=== PATIENT | female | born 1950 | race Caucasian/White ===

== ENCOUNTER → 2018-07-09 10:24 | Outpatient (CLI) | payer MEDICARE, BC, SELFPAY ==
--- NOTE | 2018-07-09 | DI.MG.S_ITS ---
BILATERAL DIGITAL SCREENING MAMMOGRAM 3D/2D WITH CAD: 07/09/2018 CLINICAL: Routine screening. Comparison is made to exams dated: 06/12/2017 mammogram, 06/01/2016 mammogram, and 04/26/2015 mammogram - [facility]. There are scattered fibroglandular elements in both breasts. Current study was also evaluated with a Computer Aided Detection (CAD) system. There is an asymmetry in the right breast middle depth central to the nipple seen on the mediolateral oblique view only. No other significant masses, calcifications, or other findings are seen in either breast. IMPRESSION: INCOMPLETE: NEEDS ADDITIONAL IMAGING EVALUATION The asymmetry in the right breast is indeterminate. Additional views with possible ultrasound are recommended. NOTE: For mammograms, a report in lay terms will be sent to the patient. Approximately 15% of breast malignancies will not be visualized mammographically. In the management of a palpable breast mass, a negative mammogram must not discourage biopsy of a clinically suspicious lesion. Electronically Signed By: Cristel sanchez/taylor:07/10/2018 14:50:04 letter sent: Additional Imaging Needed ACR BI-RADS Category 0: Incomplete 3340F
== END ==
PROVIDERS: Visit Provider Family Medicine
DX: Z12.31 Encounter for screening mammogram for malignant neoplasm of breast (principal)
CPT/HCPCS: 77063; 77067

== ENCOUNTER → 2018-07-30 12:35 | Outpatient (CLI) | payer MEDICARE, BC, SELFPAY ==
--- NOTE | 2018-07-30 | DI.US.S_ITS ---
LIMITED ULTRASOUND OF RIGHT BREAST: 07/30/2018 CLINICAL: Follow up from addtional views. Comparison is made to exams dated: 07/30/2018 mammogram, 07/09/2018 mammogram - [facility], and 06/12/2017 mammogram - [facility]. Real-time and Doppler ultrasound of the right breast 2-4 o'clock, 8-10 o'clock, and retroareolar regions were performed. Macedo scale images of the real-time examination were reviewed. No underlying breast mass or abnormality is identified. There is no ultrasound correlate for the previously noted asymmetry in the right breast middle depth central to the nipple seen on the mediolateral oblique view only on comparison screening mammograms, which also resolved on additional diagnostic views performed earlier today. IMPRESSION: NEGATIVE There is no sonographic evidence of malignancy in the imaged portions of the right breast. Return to annual screening mammography is recommended. The patient is advised to monitor her breasts and to return sooner for re-evaluation should she feel anything grow or change. This exam was interpreted at Station ID: [id number]. Electronically Signed By: Raul Kasper M.D. ecl/:07/30/2018 14:24:27 letter sent: Normal Exam Ultrasound BI-RADS: 1 Negative
--- NOTE | 2018-07-30 | DI.MG.S_ITS ---
UNILATERAL RIGHT DIGITAL DIAGNOSTIC MAMMOGRAM 3D/2D WITH ADDITIONAL VIEWS: 07/30/2018 CLINICAL: Additional evaluation requested from prior study. Family history of breast cancer. Comparison is made to exams dated: 07/09/2018 mammogram - [facility], 06/12/2017 mammogram, 06/01/2016 mammogram, and 04/26/2015 mammogram - [facility]. There are scattered fibroglandular elements in right breast. Previously noted asymmetry in the right breast middle depth central to the nipple seen on the mediolateral oblique view only on comparison screening mammogram resolves with additional views and likely represented superimposition of benign anatomic tissues. No significant masses, calcifications, or other findings are seen in the breast. IMPRESSION: INCOMPLETE: NEEDS ADDITIONAL IMAGING EVALUATION Previously noted asymmetry in the right breast middle depth central to the nipple seen on the mediolateral oblique view only on comparison screening mammogram resolves with additional views and likely represented superimposition of benign anatomic tissues. A targeted ultrasound is recommended and will be performed immediately following this exam. This exam was interpreted at Station ID: [id number]. NOTE: For mammograms, a report in lay terms will be sent to the patient. Approximately 15% of breast malignancies will not be visualized mammographically. In the management of a palpable breast mass, a negative mammogram must not discourage biopsy of a clinically suspicious lesion. Electronically Signed By: Raul Kasper M.D. ecl/:07/30/2018 14:20:51 letter sent: Additional Imaging Needed ACR BI-RADS Category 0: Incomplete 3340F
== END ==
PROVIDERS: PCP Family Medicine; Visit Provider Family Medicine
DX: R92.8 Other abnormal and inconclusive findings on diagnostic imaging of breast (principal); Z80.3 Family history of malignant neoplasm of breast
CPT/HCPCS: 76642; 77065; G0279

== ENCOUNTER → 2019-07-11 12:16 | Outpatient (CLI) | payer MEDICARE, BC, SELFPAY ==
--- NOTE | 2019-07-11 | DI.MG.S_ITS ---
BILATERAL DIGITAL SCREENING MAMMOGRAM 3D/2D WITH CAD: 07/11/2019 CLINICAL: Routine screening. Family history of breast cancer. Comparison is made to exams dated: 07/09/2018 mammogram - [facility], 06/12/2017 mammogram, and 06/01/2016 mammogram - [facility]. There are scattered fibroglandular elements in both breasts. Current study was also evaluated with a Computer Aided Detection (CAD) system. No significant masses, calcifications, or other findings are seen in either breast. There has been no significant interval change. IMPRESSION: NEGATIVE There is no mammographic evidence of malignancy. A 1 year screening mammogram is recommended. This exam was interpreted at Station ID: [id number]. NOTE: For mammograms, a report in lay terms will be sent to the patient. Approximately 15% of breast malignancies will not be visualized mammographically. In the management of a palpable breast mass, a negative mammogram must not discourage biopsy of a clinically suspicious lesion. Electronically Signed By: Gamal palafox/taylor:07/11/2019 13:45:32 letter sent: Normal Exam ACR BI-RADS Category 1: Negative 3341F
== END ==
PROVIDERS: PCP Family Medicine; Visit Provider Family Medicine
DX: Z12.31 Encounter for screening mammogram for malignant neoplasm of breast (principal); Z80.3 Family history of malignant neoplasm of breast
CPT/HCPCS: 77063; 77067

== ENCOUNTER → 2020-07-12 10:51 | Outpatient (CLI) | payer MEDICARE, BC, SELFPAY ==
--- NOTE | 2020-07-12 | DI.MG.S_ITS ---
BILATERAL DIGITAL SCREENING MAMMOGRAM 3D/2D WITH CAD: 07/12/2020 CLINICAL: Routine screening. Family history of breast cancer. Comparison is made to exams dated: 07/11/2019 mammogram, 07/30/2018 mammogram, 07/09/2018 mammogram - [facility], and 06/12/2017 mammogram - [facility]. There are scattered fibroglandular elements in both breasts. Current study was also evaluated with a Computer Aided Detection (CAD) system. There are mole markers on the left breast. No significant masses, calcifications, or other findings are seen in either breast. There has been no significant interval change. IMPRESSION: NEGATIVE There is no mammographic evidence of malignancy. A 1 year screening mammogram is recommended. This exam was interpreted at Station ID: [id number]. NOTE: For mammograms, a report in lay terms will be sent to the patient. Approximately 15% of breast malignancies will not be visualized mammographically. In the management of a palpable breast mass, a negative mammogram must not discourage biopsy of a clinically suspicious lesion. Electronically Signed By: Andrea Dumont acr/penrad:07/12/2020 12:08:10 letter sent: Normal Exam ACR BI-RADS Category 1: Negative 3341F
== END ==
PROVIDERS: PCP Family Medicine; Referring Provider Family Medicine; Visit Provider Family Medicine
DX: Z12.31 Encounter for screening mammogram for malignant neoplasm of breast (principal)
CPT/HCPCS: 77063; 77067

== ENCOUNTER → 2021-07-20 12:12 | Outpatient (CLI) | payer MEDICARE, BC, SELFPAY ==
--- NOTE | 2021-07-20 12:15 | DI.MG.S_ITS ---
BILATERAL DIGITAL SCREENING MAMMOGRAM 3D/2D WITH CAD: 07/20/2021 CLINICAL: Routine screening. Family history of breast cancer. Comparison is made to exams dated: 07/12/2020 mammogram, 07/11/2019 mammogram, 07/30/2018 mammogram, and 07/09/2018 mammogram - [facility]. There are scattered fibroglandular elements in both breasts. Current study was also evaluated with a Computer Aided Detection (CAD) system. There are mole markers on the left breast. No significant masses, calcifications, or other findings are seen in either breast. There has been no significant interval change. IMPRESSION: NEGATIVE There is no mammographic evidence of malignancy. A 1 year screening mammogram is recommended. This exam was interpreted at Station ID: [id number]. NOTE: For mammograms, a report in lay terms will be sent to the patient. Approximately 15% of breast malignancies will not be visualized mammographically. In the management of a palpable breast mass, a negative mammogram must not discourage biopsy of a clinically suspicious lesion. Electronically Signed By: Pre Tate M.D., jr/taylor:07/20/2021 13:08:47 letter sent: Normal Exam ACR BI-RADS Category 1: Negative 3341F
== END ==
PROVIDERS: PCP Family Medicine; Referring Provider Family Medicine; Visit Provider Family Medicine
DX: Z12.31 Encounter for screening mammogram for malignant neoplasm of breast (principal); Z80.3 Family history of malignant neoplasm of breast
CPT/HCPCS: 77063; 77067

== ENCOUNTER → 2022-08-23 09:55 | Outpatient (CLI) | payer MEDICARE, BC, SELFPAY ==
--- NOTE | 2022-08-23 | DI.MG.S_ITS ---
BILATERAL DIGITAL SCREENING MAMMOGRAM 3D/2D WITH CAD: 08/23/2022 CLINICAL: Routine screening. Comparison is made to exams dated: 07/20/2021 mammogram, 07/12/2020 mammogram, and 07/11/2019 mammogram - [facility]. There are scattered areas of fibroglandular density in both breasts (category b / 25%-50% glandular tissue). Current study was also evaluated with a Computer Aided Detection (CAD) system. There are mole markers on the left breast. No significant masses, calcifications, or other findings are seen in either breast. There has been no significant interval change. IMPRESSION: NEGATIVE There is no mammographic evidence of malignancy. A 1 year screening mammogram is recommended. Based on the Tyrer Cuzick model (a risk assessment model) the patient's lifetime risk is 4.3% and her 10 year risk is 3.5%. According to the ACR, ACS, and NCCN guidelines, an annual breast MRI exam along with mammogram is recommended if the patient's lifetime risk is 20% or greater. This exam was interpreted at Station ID: [id number]. NOTE: For mammograms, a report in lay terms will be sent to the patient. Approximately 15% of breast malignancies will not be visualized mammographically. In the management of a palpable breast mass, a negative mammogram must not discourage biopsy of a clinically suspicious lesion. Electronically Signed By: Per Tate M.D., jr/taylor:08/23/2022 13:06:35 letter sent: Normal Exam ACR BI-RADS Category 1: Negative 3341F
== END ==
PROVIDERS: PCP Physician Assistant; Referring Provider Physician Assistant; Visit Provider Physician Assistant
DX: Z12.31 Encounter for screening mammogram for malignant neoplasm of breast (principal)
CPT/HCPCS: 77063; 77067

== ENCOUNTER → 2024-01-10 08:22 | Outpatient (CLI) | payer MEDICARE, BC, SELFPAY ==
--- NOTE | 2024-01-10 08:23 | DI.MG.S_ITS ---
BILATERAL DIGITAL SCREENING MAMMOGRAM 3D/2D WITH CAD: 01/10/2024 CLINICAL: Routine screening. Family history of breast cancer. Comparison is made to exams dated: 08/23/2022 mammogram, 07/20/2021 mammogram, and 07/12/2020 mammogram - [facility]. Both breasts are almost entirely fatty (category a/<25% glandular tissue). Current study was also evaluated with a Computer Aided Detection (CAD) system. There is a benign focal asymmetry in the left breast. There are mole markers on the left breast. No significant masses, calcifications, or other findings are seen in either breast. There has been no significant interval change. IMPRESSION: BENIGN There is no mammographic evidence of malignancy. A 1 year screening mammogram is recommended. Based on the Tyrer Cuzick model (a risk assessment model) the patient's lifetime risk is 2.6% and her 10 year risk is 2.4%. According to the ACR, ACS, and NCCN guidelines, an annual breast MRI exam along with mammogram is recommended if the patient's lifetime risk is 20% or greater. This exam was interpreted at Station ID: [id number]. NOTE: For mammograms, a report in lay terms will be sent to the patient. Approximately 15% of breast malignancies will not be visualized mammographically. In the management of a palpable breast mass, a negative mammogram must not discourage biopsy of a clinically suspicious lesion. Electronically Signed By: Lashonda barrett/taylor:01/10/2024 18:42:00 letter sent: Normal Exam ACR BI-RADS Category 2: Benign Finding(s) 3342F
== END ==
PROVIDERS: PCP Physician Assistant; Referring Provider Physician Assistant; Visit Provider Physician Assistant
DX: Z12.31 Encounter for screening mammogram for malignant neoplasm of breast (principal); Z80.3 Family history of malignant neoplasm of breast; R92.313 Mammographic fatty tissue density, bilateral breasts
CPT/HCPCS: 77063; 77067

== ENCOUNTER 2024-12-12 11:50 | Outpatient (CLI) | payer MEDICARE, BC, SELFPAY ==
[2024-12-12] VITALS (9 sets, daily range): BP systolic 158–191; BP diastolic 74–84; PULSE 60–69; RESP 16; TEMP 36.8; O2SAT 93–100
--- NOTE | 2024-12-12 | PATH_ITS ---
[facility] Accession Number: [id number] No. of containers..01 Tissue No. of containers..07 Slide . 01 Material submitted: . bone marrow - [facility] BONE NEEDLE CORE BIOPSY . 01 Diagnosis: BONE MARROW BIOPSY, ASPIRATE SMEAR, AND TOUCH PREP, ILIAC CREST: - Limited sample with normocellular bone marrow for age (30%), with normal maturing trilineage hematopoiesis, negative for increased blasts. - Mild focal reticulin fibrosis (MF 0-1 of 3). - Chromosome analysis and MPN/CML FISH panel pending. - See comment and microscopic description. - COMMENT: Concurrent flow cytometry analysis (specimen ID: [id number]) is negative for increased or aberrant blasts, negative for monotypic B-cell and plasma cell populations, and negative for aberrant T-cells. - Chromosome analysis and FISH panel results will be reported in an addendum. Follow up and clinical correlation is recommended. [facility] 12/19/2024 1156 Local . 01 Electronically signed: . Elizabeth Pereira MD, Pathologist NPI- [id number] . 01 Gross description: . Received in formalin with two identifiers and iliac crest, is a single clark to brown needle core of osseous tissue 0.9 cm in length by 0.2 cm in diameter. Submitted in cassette A1 following decalcification in Immunocal. ([id number]) /PEGGY 12/16/2024 1015 Local . 01 Microscopic: . 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 Recent labs: Erythropoietin of 6.8 (N), 12/10/2024. - MOST RECENT AVAILABLE CBC (12/12/2024): WBC: 5.8 K/uL HCT: 45.1% PLT: 338 K/uL. - ASPIRATE SMEAR / TOUCH PREP EVALUATION AND MANUAL DIFFERENTIAL (%): Aspirate smears and touch prep slides are hypospicular, hypocellular and markedly hemodilute, precluding a lead generation representative differential count. - Erythropoiesis: Limited precursors with predominantly normal morphology. Granulopoiesis: Normal maturation and morphology. Megakaryopoiesis: Rare megs with predominantly normal morphology. Blasts: No discretely increased population present. Plasma cells: No appreciable plasma cell population present. Iron stain: Lack of significant red cell precursors and marrow particles precludes evaluation of storage iron and ring sideroblasts. - CORE BIOPSY: Small core fragment with limited marrow space for evaluation, with cellularity of 30%. To better characterize this process, immunohistochemical stains were indicated and performed with adequate controls (see below). Erythroid precursors: Normal maturation and distribution, supported by CD71 and E-cadherin immunostains. Myeloid cells: Normal number and distribution, supported by CD15 immunostain. Normal M:E ratio of 3:1. CD117 highlights scattered mast cells, 2-3% of cellularity. Megakaryocytes: Normal number without tight clusters, with rare small forms, supported by FactorVIII immunostain. Blasts: <5% blasts, supported by CD34 immunostain. Lymphocytes: Single small non-paratrabecular lymphoid aggregate consisting of small predominantly T-cells and few mixed B-cells. CD3 highlights 5-10% scattered T-cells, and PAX-5 highlights 2-3% scattered B-cells. Plasma cells: CD138 highlights 2% scattered interstitial plasma cells which are polyclonal by kappa flow cytometry. Reticulin stain: Mild focal reticulin fibrosis (MF 0-1 of 3). Note: Evaluation based on a small sample size. - ASPIRATE CLOT: Not submitted. - As part of ongoing clinical quality rn, select slides were reviewed by Dr. Eulalio Peralta who agrees with the interpretation. Technical Note: The immunohistochemical stains reported were performed at [facility] ([address], [facility] [address]). This test was developed, and the performance characteristics were validated by [facility]. It has not been cleared or approved by the Food and Drug Administration. . 01 Pathologist provided ICD-10: D75.1 . 01 CPT . 945317, 830818, 038812, 312667, 677776, 807119, G26060, P57297 Specimen Comment: A courtesy copy of this report has been sent to [phone] Performed at: [address] [address], [place], [place] [id number] MD Jose Jalloh MD Phone: [phone]
--- NOTE | 2024-12-12 11:52 | DI.CT.S_ITS ---
PROCEDURE: CT BIOPSY BONE DEEP Sedation analgesia for 10 minutes. INDICATIONS: ERYTHROCYTOSIS AND SJOGRENS TECHNIQUE: The indications, alternatives, benefits, risks, and possible complications of the procedure were communicated to the patient. Informed written consent from the patient was obtained and placed in the chart. Continuous EKG and hemodynamic monitoring was started by trained personnel. The patient was brought to the CT suite and pouch making machine operator spiral CT imaging was performed with localization grid. The appropriate site for percutaneous access to the biopsy target was marked, was prepped and draped sterilely, and was infused with local anaesthesia. Under CT guidance, a core biopsy trocar and needle set was advanced to the biopsy target, and specimen(s) were obtained. The trocar and needle were then removed, and the patient was sent for post-procedure monitoring. COMPARISON: None. FINDINGS: Biopsy site: Right iliac bone Needle: 11 gauge biopsy needle with introducer trocar. Number of passes: 1 Medications: 1% lidocaine for local anaesthesia. IV Fentanyl and Versed for conscious sedation for 11 minutes (see nursing record). Complications: None. Left ovarian cyst without suspicious features measuring 4.4 cm. IMPRESSION: Successful CT-guided biopsy of the right iliac bone . Left ovarian cyst without suspicious features measuring 4.4 cm. This probably represents an O-RADS 2 cyst. Recommend further evaluation/characterization with pelvic ultrasound. Dictated by: Adolfo Shrestha M.D. on 12/12/2024 at 14:46 Approved by: Adolfo Shrestha M.D. on 12/12/2024 at 14:47
[2024-12-12 13:32] LABS: PTT Partial Thromboplastin Tim 34 SECONDS (25.1-36.5)
[2024-12-12 13:33] LABS: Hematocrit 45.1 % (36-46); Hemoglobin 15.3 g/dL (12.0-16.0); Mean Corpuscular HGB Conc 33.8 % (30-36); Mean Corpuscular Hemoglobin 33.8 PG (26-34); Mean Corpuscular Volume 99.8 fL (80-100); Platelet Count 338 X10^3/uL (150-400); Red Blood Cell Count 4.52 X10^6/uL (4.0-5.2); Red Cell Distribution Width 14.7 % (11.6-14.8); White Blood Cell Count 5.8 X10^3/uL (4.5-11.0)
[2024-12-12 13:40] LABS: Prothrombin Time 11.3 SECONDS (9.4-12.5)
[2024-12-12] MEDS: fentaNYL 100 MCG/2 ML INJ 50 MCG IV (13:47)
[2024-12-12] MEDS: MIDAZOLAM 2 MG/2 ML VIAL 0.5 MG IV (13:47)
[2024-12-12] MEDS: LIDOCAINE 1% 20 ML 10 ML INJ (14:37)
== END 2024-12-12 16:10 | disposition home or self-care (01) ==
PROVIDERS: PCP Physician Assistant; Visit Provider Radiology Diagnostic Radiology
DX: D75.1 Secondary polycythemia (principal); M35.00 Sjogren syndrome, unspecified; D75.839 Thrombocytosis, unspecified; I47.19 Other supraventricular tachycardia; I10 Essential (primary) hypertension; E78.5 Hyperlipidemia, unspecified; Z79.82 Long term (current) use of aspirin; Z79.64 Long term (current) use of myelosuppressive agent
CPT/HCPCS: 20225; 77012; 85027; 85610; 85730; 99152; J2250; J3010

== ENCOUNTER → 2025-02-07 07:49 | Outpatient (CLI) | payer MEDICARE, BC, SELFPAY ==
--- NOTE | 2025-02-07 07:53 | DI.MG.S_ITS ---
MM screening mammo BI: 02/07/2025. BI-RADS: 1 CLINICAL: 74-year old female for bilateral screening mammogram. Tyrer-Cuzick lifetime risk of 2.6%. No personal or first-degree family history of breast cancer. Current reported family history of breast cancer: paternal aunt. PRIOR EXAMS 01/10/2024, 08/23/2022, 07/20/2021, 07/12/2020, 07/11/2019, 07/30/2018, 07/09/2018. MAMMOGRAPHY TECHNIQUE: 2D and 3D (tomosynthesis) digital mammographic views obtained, with additional images as needed for full coverage. Current study was also evaluated with a Computer Aided Detection (CAD) system. DENSITY A. The breasts are almost entirely fatty. MAMMOGRAPHY FINDINGS Bilateral: No suspicious mass, asymmetry, microcalcification, or other abnormality seen. No significant change from comparison. IMPRESSION: * No evidence of malignancy. RECOMMENDATIONS Bilateral * Annual screening mammography. OVERALL ASSESSMENT CATEGORY BI-RADS-1: Negative. The [employer] recommends annual screening mammography beginning at age 40 for women with average risk of breast cancer. ELECTRONICALLY SIGNED: Lashonda Oakley M.D. on 02/09/2025 at 02:31:26 PM PT Interpreting Station ID: [id number]
== END ==
LOC: MAMMO 07:51
PROVIDERS: PCP Family Medicine; Referring Provider Family Medicine; Visit Provider Family Medicine
DX: Z12.31 Encounter for screening mammogram for malignant neoplasm of breast (principal); Z80.3 Family history of malignant neoplasm of breast; R92.313 Mammographic fatty tissue density, bilateral breasts
CPT/HCPCS: 77063; 77067

== ENCOUNTER → 2025-05-26 09:35 | Outpatient (CLI) | payer MEDICARE, BC, SELFPAY ==
--- NOTE | 2025-05-26 09:36 | DI.RAD.S_ITS ---
PROCEDURE: XR DEXA AXIAL SKELETON INDICATIONS: SCREENING COMPARISON: None. FINDINGS: Lumbar Spine: Bone mineral density 0.764 g/cm2, T score -2.6. Left Femoral Neck: Bone mineral density 0.513 g/cm2, T score -3.0. Left Hip: Bone mineral density 0.685 g/cm2, T score -2.1. Fracture Risk Calculation (when applicable): 10-year fracture risk of a major osteoporotic fracture 21 percent and of a hip fracture 8.1 percent. (T score greater or equal to -1.0 to: NORMAL) (T score from -1.1 to -2.4: OSTEOPENIA) (T score less than or equal to -2.5: OSTEOPOROSIS) IMPRESSION: Osteoporosis. Follow-up guidelines as follows: Osteoporosis: Consider a repeat DEXA and Vertebral Fracture Assessment (VFA) exam in 2 years or sooner if medically necessary, to reassess this patient's status. Osteopenia: Consider a repeat DEXA in 2-3 years to reassess this patient's status, or if there is a new clinical indication. Normal: Consider a repeat DEXA in 5 years or sooner, or if there is a new clinical indication. All treatment decisions require clinical judgment and consideration of individual patient factors, including patient preferences, comorbidities, previous drug use, risk factors not captured in the FRAX model (e.g., frailty, falls, vitamin D deficiency, increased bone turnover, interval significant decline in bone density ) and possible under- or over-estimation of fracture risk by FRAX. In addition, the NOF Guide recommends that FDA-approved medical therapies be considered in postmenopausal women and men age >= 50 years with a: * Hip or vertebral (clinical or morphometric) fracture * T-score of <=-2.5 at the spine or hip * Ten-year fracture probability by FRAX of >= 3% for hip fracture or >=20% for major osteoporotic fracture. Dictated by: Fco Alvarenga M.D. on 05/26/2025 at 12:54 Approved by: Fco Alvarenga M.D. on 05/26/2025 at 12:55
== END ==
PROVIDERS: PCP Family Medicine; Referring Provider Family Medicine; Visit Provider Family Medicine
DX: M81.0 Age-related osteoporosis without current pathological fracture (principal)
CPT/HCPCS: 77080

== ENCOUNTER 2025-06-19 09:51 | Day surgery (SDC) | payer MEDICARE, BC, SELFPAY ==
[2025-06-19] MEDS: LACTATED RINGERS 1,000 ML 42 ML IV (10:54)
[2025-06-19 11:01] VITALS: BP 149/73; PULSE 82; RESP 20; TEMP 36.8; O2SAT 98
--- NOTE | 2025-06-19 11:45 | PM.HP.IH.1 ---
History of Present Illness History of Present Illness Date Patient Seen: 06/19/25 Time Patient Seen: 11:45 Chief complaint: SDC Narrative: Jessi is a 75-year-old woman who had a recent positive Cologuard test. She has not noticed blood in her stool or melena. Her last colonoscopy was in 2003. No family history of colon cancer. PFSH Social History Smoking Status: Never smoker alcohol intake: never Meds Home Medications and Allergies Home Medications ?Medication ?Instructions ?Recorded ?Confirmed ?Type aspirin 81 mg capsule 81 mg PO DAILY 06/19/25 06/19/25 History atorvastatin 20 mg tablet 20 mg PO DAILY 06/19/25 06/19/25 History hydroxychloroquine 200 mg tablet 300 mg PO DAILY 06/19/25 06/19/25 History hydroxyurea 500 mg capsule 500 mg PO 06/19/25 History metoprolol succinate 25 mg 25 mg PO DAILY 06/19/25 06/19/25 History tablet,extended release 24 hr Allergies Allergy/AdvReac Type Severity Reaction Status Date / Time codeine AdvReac Intermediate Abdominal Verified 06/19/25 11:12 Pain Exam Vital Signs (past 8 hours): - 06/19/25 11:01 Temperature 98.2 F Pulse Rate 82 Respiratory Rate 20 Blood Pressure 149/73 H Pulse Oximetry 98 Oxygen Delivery Method Room Air Oxygen Delivery Method Room Air Const General: No acute distress Assessment & Plan Assessment and plan (1) Positive colorectal cancer screening using Cologuard test: Status: Acute Plan Colonoscopy for positive Cologuard test Time-Based Coding :: [TOTAL MINUTES] spent with patient and on the chart (including review of chart, obtaining history, exam, reviewing outside data, placing orders, documenting exam and treatment plan, and counseling patient) on [DATE]. PROFEE Monorail Hooker Document charge(s): No
--- NOTE | 2025-06-19 12:16 | PM.OP.COLON ---
Operative Date/Time/Diagnoses Date of procedure: 06/19/25 Time of procedure: 12:16 Pre-op diagnosis: Positive Cologuard test Post-op diagnosis: same Procedure & Clinicians Study performed: Colonoscopy Same procedure(s) as scheduled: Yes Surgeon: Tobin Solorio Anesthesia Type: MAC +/- Procedure Notes Procedure in detail: Surgeon: Tobin Solorio MD Anesthesia: Chelsea Sathish NUCLEAR CONTROL ROOM OPERATOR Procedure: The patient was brought to the endoscopy suite, placed in left lateral decubitus position. The patient was connected to monitoring devices. A time-out was performed. Sedation was administered. Once the patient was adequately sedated, a digital rectal exam was performed and was normal. The scope was then inserted and advanced to the cecum where the appendiceal orifice was identified and photographed. The scope was then slowly withdrawn over greater than 6 minutes. The mucosa was thoroughly inspected. No polyps were found. The scope was retroflexed in the rectum. Internal hemorrhoids were noted. The scope was straightened and removed. The patient was awakened and brought to recovery. Scope withdrawal time: 9 minutes Sedation time: 21 minutes EBL: 0 Findings: Internal hemorrhoids Estimated Blood Loss: 0 Complications: none Post-procedure Disposition: PACU
[2025-06-19 12:20] VITALS: BP 106/55; PULSE 72; RESP 18; TEMP 36.2; O2SAT 99
[2025-06-19 12:25] VITALS: BP 109/56; PULSE 71; RESP 22; O2SAT 98
[2025-06-19 12:30] VITALS: BP 126/61; PULSE 69; RESP 22; O2SAT 98
[2025-06-19 12:55] VITALS: BP 142/67; PULSE 68; RESP 20
== END 2025-06-19 13:00 | disposition home or self-care (01) ==
PROVIDERS: PCP Family Medicine; Referring Provider Surgery; Visit Provider Surgery
PROC: 0DJD8ZZ Inspection of Lower Intestinal Tract, Via Natural or Artificial Opening Endoscopic (ICD-10-PCS; CPT 45378; principal; 2025-06-19 11:30)
DX: Z12.11 Encounter for screening for malignant neoplasm of colon (principal); R19.5 Other fecal abnormalities; K64.8 Other hemorrhoids
CPT/HCPCS: G0121; J2704; J7120